=== PATIENT | male | born 1960 | race Two or more races ===

== ENCOUNTER → 2022-05-02 | Outpatient (CLI) | payer OTHER ==
[2022-05-02 07:44] LABS: Cholesterol 172 mg/dL (< 200)
[2022-05-02 07:46] LABS: HDL Cholesterol 62 mg/dL (40-59); LDL Cholesterol 105 mg/dL (< 100); Triglycerides 53 mg/dL (< 150)
== END | disposition home or self-care (01) ==
LOC: LAB 06:52
PROVIDERS: ATTEND Internal Medicine
DX: R79.89 Other specified abnormal findings of blood chemistry (principal)
CPT/HCPCS: 36415; 80061; 82043; 83036

== ENCOUNTER → 2022-09-17 | Outpatient (CLI) | payer OTHER ==
[2022-09-17 08:03] LABS: Cholesterol 181 mg/dL (< 200)
[2022-09-17 08:06] LABS: HDL Cholesterol 59 mg/dL (40-59); LDL Cholesterol 99 mg/dL (< 100); Triglycerides 153 mg/dL (< 150)
== END | disposition home or self-care (01) ==
LOC: LAB 07:10
PROVIDERS: ATTEND Internal Medicine
DX: R73.03 Prediabetes (principal); E78.5 Hyperlipidemia, unspecified
CPT/HCPCS: 36415; 80061; 83036

== ENCOUNTER → 2022-12-20 | Outpatient (CLI) | payer OTHER | END | disposition home or self-care (01) | LOC: LAB 07:23 | PROVIDERS: ATTEND Internal Medicine | DX: Z12.11 Encounter for screening for malignant neoplasm of colon (principal); R73.03 Prediabetes | CPT/HCPCS: 82270 ==

== ENCOUNTER → 2023-03-28 | Outpatient (CLI) | payer OTHER ==
[~2023-03-28] MED LIST: EPINEPHrine HCL 1 MG/10 ML SYRG ONE
[2023-03-28 15:42] LABS: Alanine Aminotransferase 20 U/L (7-40); Albumin 4.7 g/dL (3.2-4.8); Alkaline Phosphatase 226 U/L (46-116); Aspartate Aminotransferase 15 U/L (13-40)
[2023-03-28 15:43] LABS: Bilirubin, Direct < 0.1 mg/dL (<0.3); Bilirubin, Total 0.2 mg/dL (0.2-1.0); Total Protein 7.2 g/dL (5.7-8.2)
== END | disposition home or self-care (01) ==
LOC: LAB 14:56
PROVIDERS: ATTEND Internal Medicine
DX: R79.89 Other specified abnormal findings of blood chemistry (principal)
CPT/HCPCS: 36415; 80076; J0171

== ENCOUNTER → 2023-06-10 | Outpatient (CLI) | payer OTHER ==
[2023-06-10 09:14] LABS: Alanine Aminotransferase 26 U/L (7-40); Albumin 4.5 g/dL (3.2-4.8); Alkaline Phosphatase 204 U/L (46-116); Anion Gap 5 (5-15); Aspartate Aminotransferase 20 U/L (13-40); BUN/Creatinine Ratio 18.3 (10.0-20.0); Bilirubin, Total 0.4 mg/dL (0.2-1.0); Blood Urea Nitrogen 19 mg/dL (9-23); CRP High Sensitivity 0.79 mg/dL (<1.0); Calcium 9.5 mg/dL (8.5-10.1); Carbon Dioxide 27 mmol/L (20-30); Chloride 106 mmol/L (98-107); Glucose 99 mg/dL (74-106); Potassium 4.6 mmol/L (3.5-5.1); Sodium 138 mmol/L (136-145)
[2023-06-10 09:21] LABS: Erythrocyte Sedimentation Rate 9 mm/hr (0-20)
== END | disposition home or self-care (01) ==
LOC: LAB 08:23
PROVIDERS: ATTEND Internal Medicine
DX: R74.8 Abnormal levels of other serum enzymes (principal); R73.03 Prediabetes
CPT/HCPCS: 36415; 80053; 83036; 83615; 85652; 86141

== ENCOUNTER → 2023-08-08 | Outpatient (CLI) | payer OTHER ==
[2023-08-08 07:44] LABS: Albumin 4.2 g/dL (3.2-4.8); Bilirubin, Direct 0.2 mg/dL (<0.3); Bilirubin, Total 0.5 mg/dL (0.2-1.0); Total Protein 6.8 g/dL (5.7-8.2)
== END | disposition home or self-care (01) ==
LOC: LAB 07:11
PROVIDERS: ATTEND Internal Medicine
DX: R74.8 Abnormal levels of other serum enzymes (principal)
CPT/HCPCS: 36415; 80076

== ENCOUNTER → 2024-08-11 | Outpatient (CLI) | payer OTHER ==
[2024-08-11 10:23] LABS: Erythrocyte Sedimentation Rate 4 mm/hr (0-20)
[2024-08-11 10:43] LABS: Albumin 4.4 g/dL (3.2-4.8); Bilirubin, Direct 0.2 mg/dL (<0.3); Bilirubin, Total 0.6 mg/dL (0.2-1.0); Total Protein 6.8 g/dL (5.7-8.2)
== END | disposition home or self-care (01) ==
LOC: LAB 09:11
PROVIDERS: ATTEND Internal Medicine
DX: I10 Essential (primary) hypertension (principal); R74.8 Abnormal levels of other serum enzymes; R73.09 Other abnormal glucose
CPT/HCPCS: 36415; 80076; 83036; 85652

== ENCOUNTER → 2024-10-22 | Outpatient (CLI) | payer OTHER ==
[2024-10-22 10:37] LABS: CRP High Sensitivity 0.16 mg/dL (<1.0)
== END | disposition home or self-care (01) ==
LOC: LAB 09:09
PROVIDERS: ATTEND Internal Medicine
DX: I10 Essential (primary) hypertension (principal); R73.03 Prediabetes; R74.8 Abnormal levels of other serum enzymes
CPT/HCPCS: 36415; 80061; 84153; 86141

== ENCOUNTER 2024-12-02 09:12 | Outpatient (CLI) | payer OTHER ==
[2024-12-03 08:07] LABS: Immunoglobulin A 249 mg/dL (61-437); Immunoglobulin G, Serum 891 mg/dL (603-1613); Immunoglobulin M 71 mg/dL (20-172)
[2024-12-03 09:07] LABS: Anti-Nuclear Antibody Direct Negative (Negative); Anti-dsDNA Antibody <1 IU/mL (0-9); Antiscleroderma-70 Antibody <0.2 AI (0.0-0.9); Sjogren's Anti-SS-A Antibody <0.2 AI (0.0-0.9); Sjogren's Anti-SS-B Antibody <0.2 AI (0.0-0.9)
[2024-12-03 10:07] LABS: Hepatitis B Surface Antigen Negative (Negative)
[2024-12-03 10:30] LABS: Hepatitis C Antibody Negative (Negative)
[2024-12-06 12:07] LABS: Anti-Striated Muscle Antibody Negative (Neg:<1:100)
== END 2024-12-02 17:00 | disposition home or self-care (01) ==
LOC: LAB 09:12
PROVIDERS: ATTEND Internal Medicine
DX: R74.8 Abnormal levels of other serum enzymes (principal)
CPT/HCPCS: 36415; 80074; 82103; 82105; 82390; 82728; 82784; 84443; 86160; 86225; 86235; 86376; 86431